=== PATIENT | male | born 1960 | race Caucasian/White ===

== ENCOUNTER 2020-05-21 11:40 | Outpatient (REF) | payer OTHER, SELFPAY ==
[2020-05-21 12:10] VITALS: BMI 59.4
--- NOTE | 2020-05-21 12:52 | PM.OP ---
Brief Operative Note Date of procedure: 05/21/20 Pre-op diagnosis: elevated psa Post-op diagnosis: same Procedure: prostate measure, pudendal block, prostate biopsy Anesthesia: local Surgeon: Hans Flower Pathology: other (12 core) Condition: stable Disposition: no change
--- NOTE | 2020-05-21 13:23 | W.PM.OPN ---
Operative Note Operative Note Narrative: Preoperative diagnosis: Elevated PSA Postoperative diagnosis: Elevated PSA Procedure: 1. transrectal ultrasound measurement of prostate 2. transrectal ultrasound-guided pudendal nerve block 3. transrectal ultrasound-guided prostate biopsy 12 core Surgeon: Dr. Hans Flower Anesthetic: Local Indications for procedure: Elevated PSA Prostate Cancer Procedure: After informed consent was verified, the patient was brought into the procedure area and lay left-hand side down on the table. Patient identity confirmed. Perioperative antibiotics confirmed. Gel was placed per rectum Ultrasound probe was placed per rectum The prostate was measured in 3 dimensions Total volume equals 75 gm There were no cystic structures and no calcifications noted and the prostate was homogeneous in nature A ultrasound-guided pudendal nerve block was performed using 10 cc of 1% lidocaine. 8 cc was placed at the base and 2 cc of the apex. A 12 core biopsy was performed with 6 cores each side. Two cores were taken at the apex, mid and base. Cores were spaced between lateral and medial. He tolerated the procedure well. Was able to ambulate to bathroom after 5 minutes. Printed instructions regarding antibiotic use and common side effects such as low-grade temperature and bleeding were given.
== END 2020-05-21 23:59 | disposition home or self-care (01) ==
LOC: HO.MS 11:40
PROVIDERS: PCP Internal Medicine; Visit Provider Urology
PROC: (CPT 55700; principal; 2020-05-21 12:00)
DX: R97.20 Elevated prostate specific antigen [PSA] (principal)
CPT/HCPCS: 55700; 76942; 88305

== ENCOUNTER → 2020-06-07 10:59 | Outpatient (BNVA) | payer OTHER, SELFPAY | PROVIDERS: PCP Internal Medicine; Visit Provider Urology | DX: Z76.89 Persons encountering health services in other specified circumstances (principal) ==

== ENCOUNTER 2020-06-17 15:27 | Outpatient (REF) | payer OTHER, SELFPAY ==
[2020-06-17 16:32] LABS: Albumin Level 4.7 g/dL (3.5-5.0); Calcium 9.7 mg/dL (8.4-10.2); Estimated Glomerular Filt Rate > 60; Phosphorus 3.3 mg/dL (2.7-4.5)
[2020-06-17 16:55] LABS: Free T4 (Free Thyroxine) 0.96 ng/dL (0.71-1.85); Thyroid Stimulating Hormone 0.54 mIU/mL (0.32-4.0); Vitamin D 25-OH Total 21.6 ng/mL (>30)
[2020-06-18 22:57] LABS: Calcium (PTHI) 10.3 mg/dL (8.6-10.3); PTHI 28 pg/mL (14-64)
[2020-06-19 16:27] LABS: Calcium, Ionized 5.4 mg/dL (4.8-5.6)
== END 2020-06-17 15:28 | disposition home or self-care (01) ==
LOC: HO.LAB 15:27
PROVIDERS: PCP Internal Medicine; Visit Provider Internal Medicine
DX: E04.2 Nontoxic multinodular goiter (principal); E83.52 Hypercalcemia; E55.9 Vitamin D deficiency, unspecified
CPT/HCPCS: 82040; 82306; 82310; 82330; 82565; 83970; 84100; 84439; 84443

== ENCOUNTER 2020-06-27 10:00 | Outpatient (REF) | payer OTHER, SELFPAY ==
--- NOTE | 2020-06-27 11:07 | PM.OP ---
Brief Operative Note Date of Service: 06/27/20 Surgeon: Norma Khalil, DO This is doctor Norma Khalil. This is an ultrasound-guided fine-needle aspiration report. Patient name: Raza Hancock : Medical Record Number: Date of Examination: Referring Physician Is: Indication: Multinodular Thyroid Porcedure: Procedure was explained to the patient. Alternatives, the risk and benefits were discussed. Written consent was obtained. A time-out was also obtained. After sterile preparation, fine-needle aspiration of a Left upper pole 1.8 cm thyroid nodule was performed using direct ultrasound guidance to confirm accurate needle placement. Four aspirations were made using 27 gauge needles. Samples were submitted for cytology. 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 After sterile preparation, fine-needle aspiration of a Left lower pole 3.0 cm thyroid nodule was performed using direct ultrasound guidance to confirm accurate needle placement. 3 aspirations were made using 27 gauge needles. Samples were submitted for cytology. 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 After sterile preparation, fine-needle aspiration of a Right Lower Pole 2.5 cm thyroid nodule was performed using direct ultrasound guidance to confirm accurate needle placement. Two aspirations were made using 27 gauge needles. Samples were submitted for cytology. 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 The patient tolerated the procedure well. Aftercare instructions were provided. Impression: Uncomplicated fine needle aspiration biopsy of a L upper pole 1.8 cm, Left lower pole 3.0 cm and a right lower pole 2.5 cm thyroid nodule under ultrasound guideance. Estimated blood loss (mL): 0
== END 2020-06-27 10:01 | disposition home or self-care (01) ==
LOC: HO.US 10:00
PROVIDERS: PCP Internal Medicine; Visit Provider Internal Medicine
DX: E04.2 Nontoxic multinodular goiter (principal)
CPT/HCPCS: 10005; 10006; 88172; 88173; 88177

== ENCOUNTER → 2020-10-02 09:32 | Outpatient (BNVA) | payer OTHER, SELFPAY | PROVIDERS: PCP Internal Medicine; Visit Provider Internal Medicine ==

== ENCOUNTER 2020-12-10 09:34 | Outpatient (REF) | payer OTHER, SELFPAY ==
[2020-12-10 11:22] LABS: PSA,Total (Free>4and<10) 5.63 ng/mL (0.00-4.00)
[2020-12-11 11:17] LABS: Free Prostate Spec Ag 0.6 ng/mL; Percent Free Prostate Spec Ag 14 % (calc) (>25); Prostate Specific Ag Total 4.4 ng/mL (< OR = 4.0)
== END 2020-12-10 09:35 | disposition home or self-care (01) ==
LOC: HO.10HDL 09:34
PROVIDERS: Visit Provider Urology
DX: N40.1 Benign prostatic hyperplasia with lower urinary tract symptoms (principal); N13.8 Other obstructive and reflux uropathy; R97.20 Elevated prostate specific antigen [PSA]
CPT/HCPCS: 36415; 84153; 84154

== ENCOUNTER → 2021-01-27 08:45 | Outpatient (BNVA) | payer OTHER, SELFPAY | PROVIDERS: PCP Internal Medicine; Visit Provider Internal Medicine ==

== ENCOUNTER 2021-02-20 11:22 | Outpatient (REF) | payer OTHER, SELFPAY ==
[2021-02-20 13:45] LABS: Free T4 (Free Thyroxine) 0.96 ng/dL (0.71-1.85); Thyroid Stimulating Hormone 0.76 uIU/mL (0.32-4.0)
== END 2021-02-20 11:23 | disposition home or self-care (01) ==
LOC: HO.LAB 11:22
PROVIDERS: Visit Provider Internal Medicine
DX: E04.2 Nontoxic multinodular goiter (principal)
CPT/HCPCS: 36415; 84439; 84443